=== PATIENT | female | born 1960 ===

== ENCOUNTER 2017-05-16 09:59 | Emergency (ER) | payer OTHER, SELFPAY ==
[2017-05-16 10:03] VITALS: BMI 29.4
[2017-05-16 10:04] VITALS: BP 112/76; PULSE 95; RESP 20; TEMP 99.3; O2SAT 97
--- NOTE | 2017-05-16 10:18 | C.PDOC ---
History Of Present Illness 56 yr old female presents to the ER with complaints of body aches, sore throat, chills and subjective fever since yesterday. Patient also reports of green nasal discharge. Denies chest pain, SOB, nausea, vomiting, abdominal pain, diarrhea, weakness or numbness. Time Seen by Provider: 05/16/17 10:11 Chief Complaint (Nursing): Flu-like Symptoms History Per: Patient History/Exam Limitations: no limitations Onset/Duration Of Symptoms: Days (1) Current Symptoms Are (Timing): Still Present Sick Contacts (Context): None Past Medical History Reviewed: Historical Data, Nursing Documentation, Vital Signs Vital Signs: Last Vital Signs Temp 99.3 F 05/16/17 10:03 Pulse 95 H 05/16/17 10:03 Resp 20 05/16/17 10:03 BP 112/76 05/16/17 10:03 Pulse Ox 97 05/16/17 10:42 - Medical History PMH: Back Problems, Bronchitis Surgical History: Appendectomy (17 yrs ago), Cholecystectomy (3 yrs ago) - [facility] Procedures COLONOSCOPY (06/26/13) Family History: States: No Known Family Hx - Social History Hx Tobacco Use: No Hx Alcohol Use: No Hx Substance Use: No - Immunization History Hx Tetanus Toxoid Vaccination: No Hx Influenza Vaccination: No Hx Pneumococcal Vaccination: No Review Of Systems Except As Marked, All Systems Reviewed And Found Negative. Constitutional: Positive for: Fever (Subjective), Chills, Other ((+) Body aches ) ENT: Positive for: Nose Discharge (Green ), Throat Pain (Sore throat ) Cardiovascular: Negative for: Chest Pain Respiratory: Positive for: Cough. Negative for: Shortness of Breath Gastrointestinal: Negative for: Nausea, Vomiting, Abdominal Pain, Diarrhea Neurological: Negative for: Weakness, Numbness Physical Exam - Physical Exam Appears: Non-toxic, No Acute Distress Skin: Warm, Dry, No Rash Head: Atraumatic, Normacephalic Ear(s): Bilateral: Normal Throat: Erythema (Pharanx ), No Exudate Neck: Normal, Normal ROM, Supple Chest: Symmetrical, No Tenderness Cardiovascular: Rhythm Regular, No Murmur Respiratory: Normal Breath Sounds, No Rales, No Rhonchi, No Stridor, No Wheezing Extremity: Normal ROM, No Swelling Neurological/Psych: Oriented x3, Normal Speech, Normal Motor ED Course And Treatment O2 Sat by Pulse Oximetry: 97 (RA ) Pulse Ox Interpretation: Normal - Other Rad CXR X-Ray: Viewed By Me, Read By Radiologist Interpretation: HISTORY: cough. COMPARISON: Comparison made with prior study 07/03/2016. TECHNIQUE: Chest PA and lateral. FINDINGS: LUNGS: No focal consolidation. Interstitial markings are slightly increased and coarsened within the mid to lower lung zones. Findings are nonspecific though could represent minor chronic sequela of reactive/inflammatory airway disease or viral illness. PLEURA: No significant pleural effusion identified. No pneumothorax apparent. CARDIOVASCULAR: Normal. OSSEOUS STRUCTURES: No significant abnormalities. VISUALIZED UPPER ABDOMEN: Normal. OTHER FINDINGS: None. IMPRESSION: No focal consolidation. Interstitial markings are slightly increased and coarsened within the mid to lower lung zones. Findings are nonspecific though could represent minor chronic sequela of reactive/ inflammatory airway disease or viral illness. Medical Decision Making Medical Decision Making: PLAN: * CXR * Influenza * Rapid Strep * Tylenol PO 1130 strep/flu neg. cxr neg. levaquin given. vitals stable. pt speaking full sentences in nad. stablef ro outpt management. Disposition - Disposition Referrals: [facility] [Outside] [facility] [Outside] [facility] [Outside] Disposition: HOME/ ROUTINE Disposition Time: 11:28 Condition: STABLE Additional Instructions: please follow up with your doctor/clinic. return to er with worsening symptoms or concerns. Prescriptions: Levofloxacin [Levaquin] 750 mg PO DAILY #7 tablet Instructions: Upper Respiratory Infection (ED) Print Language: QATARI - Clinical Impression Clinical Impression: Upper respiratory infection - Scribe Statement The provider has reviewed the documentation as recorded by the Dee Blount Provider Attestation: All medical record entries made by the Dee were at my direction and personally dictated by me. I have reviewed the chart and agree that the record accurately reflects my personal performance of the history, physical exam, medical decision making, and the department course for this patient. I have also personally directed, reviewed, and agree with the discharge instructions and disposition.
--- NOTE | 2017-05-16 10:36 | RAD ---
HISTORY: cough COMPARISON: Comparison made with prior study 07/03/2016 TECHNIQUE: Chest PA and lateral FINDINGS: LUNGS: No focal consolidation. Interstitial markings are slightly increased and coarsened within the mid to lower lung zones. Findings are nonspecific though could represent minor chronic sequela of reactive/inflammatory airway disease or viral illness. PLEURA: No significant pleural effusion identified. No pneumothorax apparent. CARDIOVASCULAR: Normal. OSSEOUS STRUCTURES: No significant abnormalities. VISUALIZED UPPER ABDOMEN: Normal. OTHER FINDINGS: None. IMPRESSION: No focal consolidation. Interstitial markings are slightly increased and coarsened within the mid to lower lung zones. Findings are nonspecific though could represent minor chronic sequela of reactive/inflammatory airway disease or viral illness.
[2017-05-16 11:24] LABS: INFLUENZA A B NEGATIVE FOR FLU A/B (NEGATIVE)
== END 2017-05-16 11:42 | disposition home or self-care (01) ==
LOC: C.ER 09:59
DX: J06.9 Acute upper respiratory infection, unspecified (principal)

== ENCOUNTER 2017-10-04 08:48 | Emergency (ER) | payer OTHER ==
[2017-10-04 08:57] VITALS: BMI 31.2
[2017-10-04 08:59] VITALS: BP 134/84; PULSE 73; RESP 17; TEMP 98.5; O2SAT 98
--- NOTE | 2017-10-04 09:31 | C.PDOC ---
History Of Present Illness 56 year old female presents to the ED for evaluation of a cough for approximately 1 month. Patient also reports pleuritic from frequent coughing. Patient denies Hx of asthma or lung disease, RODRIGUEZ, chills, nasuea, vomit, diarrhea, headache. COUGH X 1 MO. 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 NO HO ASTHMA OR OTHER LUNG DISEASE EXAM Time Seen by Provider: 10/04/17 09:17 Chief Complaint (Nursing): ENT Problem History Per: Patient History/Exam Limitations: no limitations Onset/Duration Of Symptoms: Days Current Symptoms Are (Timing): Still Present Sick Contacts (Context): None Associated Symptoms: Cough Ear Symptoms: Bilateral: None Recent travel outside of the [place]: No Additional History Per: Patient Past Medical History Reviewed: Historical Data, Nursing Documentation, Vital Signs Vital Signs: Last Vital Signs Temp 98.5 F 10/04/17 08:56 Pulse 73 10/04/17 08:56 Resp 17 10/04/17 08:56 BP 134/84 10/04/17 08:56 Pulse Ox 98 10/04/17 11:25 - Medical History PMH: Back Problems, Bronchitis Surgical History: Appendectomy (17 yrs ago), Cholecystectomy (3 yrs ago) - [facility] Procedures COLONOSCOPY (06/26/13) Family History: States: Unknown Family Hx - Social History Hx Tobacco Use: No Hx Alcohol Use: No Hx Substance Use: No - Immunization History Hx Tetanus Toxoid Vaccination: No Hx Influenza Vaccination: No Hx Pneumococcal Vaccination: No Review Of Systems Constitutional: Negative for: Fever, Chills Cardiovascular: Positive for: Chest Pain (with coughinh) Respiratory: Positive for: Cough. Negative for: Shortness of Breath Gastrointestinal: Negative for: Nausea, Vomiting, Abdominal Pain Skin: Negative for: Rash Neurological: Negative for: Headache Physical Exam - Physical Exam Appears: Non-toxic, No Acute Distress Skin: Normal Color, Warm, Dry Head: Atraumatic, Normacephalic Eye(s): bilateral: PERRL Ear(s): Bilateral: Normal Nose: No Discharge, No Deformity Oral Mucosa: Moist, No Drooling Throat: Normal, No Erythema, No Exudate Neck: Normal ROM, Supple Chest: Symmetrical Cardiovascular: Rhythm Regular, No Murmur Respiratory: Normal Breath Sounds, No Rales, No Rhonchi, No Wheezing Gastrointestinal/Abdominal: Soft, No Tenderness, No Guarding, No Rebound Extremity: Normal ROM, No Deformity, No Swelling Neurological/Psych: Oriented x3, Normal Speech, Normal Cognition ED Course And Treatment O2 Sat by Pulse Oximetry: 98 (On RA) Pulse Ox Interpretation: Normal - Radiology CXR: Interpreted by Me CXR Interpretation: Yes: No Acute Disease Medical Decision Making Medical Decision Making: Plan: * CXR ordered On reassessment, patient is resting comfortably, and is in no acute distress. Patient was instructed to follow up with PMD in 1-2 days for further evaluation. Disposition Counseled Patient/Family Regarding: Studies Performed, Diagnosis, Need For Followup, Rx Given - Disposition Referrals: [facility] [Outside] [facility] [Outside] Disposition: HOME/ ROUTINE Disposition Time: 09:51 Condition: GOOD Prescriptions: Azithromycin 250 mg PO DAILY #6 tab Benzonatate [Tessalon Perles] 200 mg PO TID PRN #15 sgl PRN Reason: Cough Instructions: Chronic Cough (ED) Forms: [employer] (Yakut) Print Language: ITALIAN - Clinical Impression Clinical Impression: Chronic cough - Scribe Statement The provider has reviewed the documentation as recorded by the Scribe Giovanny Clark All medical record entries made by the Scribe were at my direction and personally dictated by me. I have reviewed the chart and agree that the record accurately reflects my personal performance of the history, physical exam, medical decision making, and the department course for this patient. I have also personally directed, reviewed, and agree with the discharge instructions and disposition.
--- NOTE | 2017-10-04 09:59 | RAD ---
HISTORY: COUGH COMPARISON: 05/16/2017 TECHNIQUE: Chest PA and lateral FINDINGS: LUNGS: No active pulmonary disease. PLEURA: No significant pleural effusion identified. No pneumothorax apparent. CARDIOVASCULAR: Normal. OSSEOUS STRUCTURES: No significant abnormalities. VISUALIZED UPPER ABDOMEN: Normal. OTHER FINDINGS: None. IMPRESSION: No active disease.
== END 2017-10-04 10:00 | disposition home or self-care (01) ==
LOC: C.ER 08:48
DX: R05 Cough (principal)

== ENCOUNTER 2017-11-05 12:29 | Emergency (ER) | payer OTHER ==
[2017-11-05 12:29] VITALS: BMI 31.2
[2017-11-05 13:25] VITALS: BP 156/97; PULSE 85; RESP 18; TEMP 99.1; O2SAT 96
--- NOTE | 2017-11-05 14:09 | C.PDOC ---
History Of Present Illness 57 year old female presents to ED with complaints of a cough associated with body aches which has been intermittent for the past 15 days. Denies fever, nausea, vomiting or diarrhea. Chief Complaint (Nursing): Cough, Cold, Congestion History Per: Dental Detail Representative History/Exam Limitations: no limitations Onset/Duration Of Symptoms: Days (15), Intermittent Episodes Current Symptoms Are (Timing): Still Present Severity: Mild Pain Scale Rating Of: 3 Recent travel outside of the [place]: No Past Medical History Reviewed: Historical Data, Nursing Documentation, Vital Signs Vital Signs: Last Vital Signs Temp 99.1 F 11/05/17 12:56 Pulse 85 11/05/17 12:56 Resp 18 11/05/17 12:56 BP 156/97 H 11/05/17 12:56 Pulse Ox 96 11/05/17 14:12 - Medical History PMH: Back Problems, Bronchitis Surgical History: Appendectomy (17 yrs ago), Cholecystectomy (3 yrs ago) - [facility] Procedures COLONOSCOPY (06/26/13) Family History: States: No Known Family Hx - Social History Hx Tobacco Use: No Hx Alcohol Use: No Hx Substance Use: No - Immunization History Hx Tetanus Toxoid Vaccination: No Hx Influenza Vaccination: No Hx Pneumococcal Vaccination: No Review Of Systems Constitutional: Negative for: Fever, Chills Respiratory: Positive for: Cough. Negative for: Shortness of Breath Gastrointestinal: Negative for: Nausea, Vomiting, Diarrhea Musculoskeletal: Positive for: Other (Body aches ) Neurological: Negative for: Weakness, Numbness Psych: Negative for: Depression, Suicidal ideation Physical Exam - Physical Exam Appears: Non-toxic, Other (Awake and alert) Skin: Normal Color, Warm, Dry Head: Normacephalic Eye(s): bilateral: Normal Inspection Ear(s): Bilateral: Normal Oral Mucosa: Moist Throat: No Erythema, No Exudate Neck: Supple Lymphatic: Normal Exam Chest: Symmetrical, No Tenderness Cardiovascular: Rhythm Regular Respiratory: Normal Breath Sounds, No Rales, No Rhonchi, No Wheezing Gastrointestinal/Abdominal: Soft, No Tenderness Neurological/Psych: Oriented x3, Normal Speech, Normal Cognition ED Course And Treatment O2 Sat by Pulse Oximetry: 96 (Room air) Pulse Ox Interpretation: Normal Disposition - Disposition Referrals: [facility] [Outside] Disposition: HOME/ ROUTINE Disposition Time: 18:56 Condition: GOOD Instructions: Upper Respiratory Infection (ED) Forms: General Discharge Instructions, [facility] (Danish) Print Language: ARMENIAN - Clinical Impression Clinical Impression: Upper respiratory infection - Scribe Statement The provider has reviewed the documentation as recorded by the Kamilaibangie Degroot All medical record entries made by the Kamilaibe were at my direction and personally dictated by me. I have reviewed the chart and agree that the record accurately reflects my personal performance of the history, physical exam, medical decision making, and the department course for this patient. I have also personally directed, reviewed, and agree with the discharge instructions and disposition.
== END 2017-11-05 15:22 | disposition home or self-care (01) ==
LOC: C.ER 12:29
DX: J06.9 Acute upper respiratory infection, unspecified (principal)

== ENCOUNTER 2018-01-17 11:48 | Emergency (ER) | payer OTHER ==
[2018-01-17 11:48] VITALS: BMI 31.2
[2018-01-17 12:01] VITALS: RESP 20
--- NOTE | 2018-01-17 13:35 | C.PDOC ---
History Of Present Illness 57 y/o female presents to the ED with 2 day history of pain to the right upper flank and right mid back. Pain is constant, not relieved with ibuprofen. Patient denies injury or fall. Denies any associated nausea, vomiting, diarrhea , shortness of breath, or chest pain. Patient does report cough. Pain worsens with deep inspiration. No prior history of similar symptoms. 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) History/Exam Limitations: no limitations Onset/Duration Of Symptoms: Days (x2) Current Symptoms Are (Timing): Still Present Past Medical History Reviewed: Historical Data, Nursing Documentation, Vital Signs Vital Signs: Last Vital Signs Temp 99.4 F 01/17/18 11:56 Pulse 90 01/17/18 11:56 Resp 20 01/17/18 11:56 BP 126/80 01/17/18 11:56 Pulse Ox 98 01/17/18 15:17 - Medical History PMH: Back Problems, Bronchitis Surgical History: Appendectomy (17 yrs ago), Cholecystectomy (3 yrs ago) - [facility] Procedures COLONOSCOPY (06/26/13) Family History: States: Unknown Family Hx - Social History Hx Tobacco Use: No Hx Alcohol Use: No Hx Substance Use: No - Immunization History Hx Tetanus Toxoid Vaccination: No Hx Influenza Vaccination: No Hx Pneumococcal Vaccination: No Review Of Systems Except As Marked, All Systems Reviewed And Found Negative. Respiratory: Positive for: Cough Musculoskeletal: Positive for: Back Pain, Other (Flank Pain) Physical Exam - Physical Exam Appears: Non-toxic, No Acute Distress Skin: Normal Color, Warm, Dry Head: Atraumatic, Normacephalic Eye(s): bilateral: Normal Inspection, PERRL, EOMI Nose: Normal Oral Mucosa: Moist Neck: Normal ROM, Supple Chest: Symmetrical Cardiovascular: Rhythm Regular, No Murmur Respiratory: Normal Breath Sounds, No Rales, No Rhonchi, No Wheezing Gastrointestinal/Abdominal: Soft, No Tenderness, No Distention Back: CVA Tenderness (right), No Vertebral Tenderness, Other (Tenderness at right posterior rib area) Extremity: Bilateral: Atraumatic, Normal Color And Temperature, Normal ROM Neurological/Psych: Oriented x3, Normal Speech ED Course And Treatment - Laboratory Results Result Diagrams: 01/17/18 14:09 01/17/18 14:09 O2 Sat by Pulse Oximetry: 98 (RA) Pulse Ox Interpretation: Normal - Other Rad chest x-ray X-Ray: Viewed By Me, Read By Radiologist Interpretation: FINDINGS: LUNGS: No focal consolidation. Please note that chest x-ray has limited sensitivity for the detection of pulmonary masses. PLEURA: No significant pleural effusion identified. No definite pneumothorax . CARDIOVASCULAR: Heart size appears within normal limits. OSSEOUS STRUCTURES : Mild degenerative changes. VISUALIZED UPPER ABDOMEN: Right upper quadrant surgical clips. OTHER FINDINGS: None. IMPRESSION: No focal consolidation identified. Cholecystectomy clips. - CT Scan/US CT abd/pelvis Other Rad Studies (CT/US): Read By Radiologist, Radiology Report Reviewed CT/US Interpretation: FINDINGS: There is limited evaluation of the solid organs without the administration of IV contrast. LOWER THORAX: No visible consolidation, pleural effusion, or pneumothorax. LIVER: Unremarkable unenhanced appearance. GALLBLADDER AND BILE DUCTS: Cholecystectomy. PANCREAS : Unremarkable unenhanced appearance. SPLEEN: Unremarkable unenhanced appearance. ADRENALS: Unremarkable unenhanced appearance. KIDNEYS AND URETERS : No hydronephrosis or obstructing renal calculus. BLADDER: Mildly thick- walled urinary bladder may be exaggerated by under distension. REPRODUCTIVE: Uterus is present. APPENDIX: The appendix is not identified. No secondary signs of acute appendicitis. BOWEL: The stomach is nondistended. Lack of oral contrast limits evaluation for bowel pathology. The bowel loops appear within normal limits of caliber without evidence of intestinal obstruction. Diverticulosis without CT evidence of acute diverticulitis. PERITONEUM: No significant free fluid. No definite free air. LYMPH NODES: No bulky lymphadenopathy identified. VASCULATURE: No aortic aneurysm. BONES: Mild degenerative changes of the spine. OTHER FINDINGS: Tiny fat containing umbilical hernia. IMPRESSION: Thick-walled under distended urinary bladder. Recommend correlation with urinalysis. Diverticulosis without CT evidence of acute diverticulitis. Mildly thick-walled urinary bladder may be exaggerated by under distension. Cholecystectomy. Medical Decision Making Medical Decision Making: Impression: Back pain, Flank pain Time: 13:22 Initial Plan: * Lipase * CMP * CBC * Urinalysis * Chest X-ray * Toradol 30 mg IVP * CT Abd/Pelvis W/O contrast 15:06 Discussed results w/ patient, all questions answered. On reevaluation patient reports she feels better. Will d/c home and advise follow up with family doctor in 2-3 days. Advised to return to ER with new or worsening symptoms. Disposition Counseled Patient/Family Regarding: Studies Performed, Diagnosis, Need For Followup, Rx Given - Disposition Referrals: [facility] [Outside] Disposition: HOME/ ROUTINE Disposition Time: 15:06 Condition: STABLE Additional Instructions: follow up with medical clinic in 2 days call to make an appointment take medications as prescribed return to ER if symptoms worsens or progress Prescriptions: Acetaminophen/Codeine [Tylenol/Codeine 300 MG/30 MG] 1 tab PO Q6H PRN #12 tab PRN Reason: Pain, Severe (8-10) Naproxen [Naprosyn] 500 mg PO BID PRN #16 tab PRN Reason: Pain, Moderate (4-7) Instructions: Low Back Pain (DC), Upper Back Pain Forms: Gen Discharge Inst Bahraini, [employer] (Bahraini) Print Language: SERBIAN - Clinical Impression Clinical Impression: Low back pain, Musculoskeletal pain - Scribe Statement The provider has reviewed the documentation as recorded by the Dee Machuca Provider Attestation: All medical record entries made by the Dee were at my direction and personally dictated by me. I have reviewed the chart and agree that the record accurately reflects my personal performance of the history, physical exam, medical decision making, and the department course for this patient. I have also personally directed, reviewed, and agree with the discharge instructions and disposition.
--- NOTE | 2018-01-17 13:39 | RAD ---
HISTORY: abd pain COMPARISON: Chest x-ray performed 10/04/17 TECHNIQUE: Chest PA and lateral FINDINGS: LUNGS: No focal consolidation. Please note that chest x-ray has limited sensitivity for the detection of pulmonary masses. PLEURA: No significant pleural effusion identified. No definite pneumothorax . CARDIOVASCULAR: Heart size appears within normal limits. OSSEOUS STRUCTURES: Mild degenerative changes. VISUALIZED UPPER ABDOMEN: Right upper quadrant surgical clips. OTHER FINDINGS: None. IMPRESSION: No focal consolidation identified. Cholecystectomy clips.
[2018-01-17 14:17] LABS: BASO % 0.7 % (0.0-2.0); EOS # 0.2 K/uL (0.0-0.7); EOS % 3.5 % (0.0-4.0); LYMPH # 1.6 K/uL (1.0-4.3); LYMPH % 23.3 % (20.0-40.0); MEAN CELL VOLUME 88.5 fL (81.0-99.0); MEAN CORPUSCULAR HEMOGLOBIN 30.3 pg (27.0-31.0); MEAN CORPUSCULAR HGB CONC 34.2 g/dL (33.0-37.0); MEAN PLATELET VOLUME 8.9 fL (7.2-11.7); MONO # 0.5 K/uL (0.0-0.8); MONO % 7.8 % (0.0-10.0); NEUT # 4.4 K/uL (1.8-7.0); NEUT % 64.7 % (50.0-75.0); RBC 4.28 Mil/uL (3.80-5.20); WHITE BLOOD COUNT 6.8 K/uL (4.8-10.8)
[2018-01-17 14:28] LABS: ALB/GLOB RATIO 1.2 (1.0-2.1); ALBUMIN 4.2 g/dL (3.5-5.0); ALT/SGPT 44 U/L (9-52); AST/SGOT 38 U/L (14-36); BLOOD UREA NITROGEN 7 mg/dL (7-17); GFR AFRICAN-AMERICAN > 60; GFR NON-AFRICAN AMERICAN > 60; LIPASE 67 U/L (23-300)
[2018-01-17 14:33] LABS: URINE BILIRUBIN NEGATIVE (NEGATIVE); URINE BLOOD NEGATIVE (NEGATIVE); URINE CLARITY Clear (Clear); URINE COLOR Straw (YELLOW); URINE GLUCOSE (UA) NORMAL (Normal); URINE LEUKOCYTE ESTERASE NEG Leu/uL (Negative); URINE PROTEIN NEGATIVE (NEGATIVE); URINE UROBILINOGEN NORMAL mg/dL (0.2-1.0)
--- NOTE | 2018-01-17 14:39 | CT ---
PROCEDURE: CT Abdomen and Pelvis without Oral or IV contrast. HISTORY: abd pain COMPARISON: None available. TECHNIQUE: Contiguous axial images of the abdomen and pelvis. No oral or IV contrast administered. Coronal and Sagittal reformats generated and reviewed. Radiation dose: Total exam DLP = 1031.39 mGy-cm. This CT exam was performed using one or more of the following dose reduction techniques: Automated exposure control, adjustment of the mA and/or kV according to patient size, and/or use of iterative reconstruction technique. FINDINGS: There is limited evaluation of the solid organs without the administration of IV contrast. LOWER THORAX: No visible consolidation, pleural effusion, or pneumothorax. LIVER: Unremarkable unenhanced appearance. GALLBLADDER AND BILE DUCTS: Cholecystectomy. PANCREAS: Unremarkable unenhanced appearance. SPLEEN: Unremarkable unenhanced appearance. ADRENALS: Unremarkable unenhanced appearance. KIDNEYS AND URETERS: No hydronephrosis or obstructing renal calculus. BLADDER: Mildly thick-walled urinary bladder may be exaggerated by under distension. REPRODUCTIVE: Uterus is present. APPENDIX: The appendix is not identified. No secondary signs of acute appendicitis. BOWEL: The stomach is nondistended. Lack of oral contrast limits evaluation for bowel pathology. The bowel loops appear within normal limits of caliber without evidence of intestinal obstruction. Diverticulosis without CT evidence of acute diverticulitis. PERITONEUM: No significant free fluid. No definite free air. LYMPH NODES: No bulky lymphadenopathy identified. VASCULATURE: No aortic aneurysm. BONES: Mild degenerative changes of the spine. OTHER FINDINGS: Tiny fat containing umbilical hernia. IMPRESSION: Thick-walled under distended urinary bladder. Recommend correlation with urinalysis. Diverticulosis without CT evidence of acute diverticulitis. Mildly thick-walled urinary bladder may be exaggerated by under distension. Cholecystectomy.
[2018-01-17] MEDS ORDERED: Acetaminophen-Codeine 300/30 mg Tab PO STA (15:05)
[2018-01-17] MEDS ORDERED: Acetaminophen-Codeine 300/30 mg Tab PO ONE (15:32)
[2018-01-17 15:47] VITALS: BP 124/76; PULSE 83; TEMP 97.3; O2SAT 97
== END 2018-01-17 15:46 | disposition home or self-care (01) ==
LOC: C.ER 11:48
DX: M54.5 Low back pain (principal); M79.1 Myalgia
CPT/HCPCS: 71046; 74176; 80053; 81001; 83690; 85025; 96374; 99284; J1885

== ENCOUNTER 2018-11-22 10:31 | Outpatient (CLI) | payer OTHER | END 2018-11-22 10:32 | disposition home or self-care (01) | LOC: C.RADIC 10:31 ==

== ENCOUNTER 2019-03-07 09:28 | Emergency (ER) | payer OTHER | END 2019-03-07 12:58 | disposition home or self-care (01) | LOC: C.ER 09:28 | DX: J40 Bronchitis, not specified as acute or chronic (principal) | CPT/HCPCS: 71046; 80053; 84484; 85025; 85378; 93005; 94640; 96374; 99285; J1885 ==